=== PATIENT | female | born 1955 | race Caucasian/White ===

== ENCOUNTER 2020-09-07 14:13 | Outpatient (REF) | payer MEDICARE, SELFPAY | END 2020-09-07 14:14 | disposition home or self-care (01) | LOC: HO.LNP 14:13 | PROVIDERS: Visit Provider Nurse Practitioner Family | DX: N39.0 Urinary tract infection, site not specified (principal) | CPT/HCPCS: 87086 ==

== ENCOUNTER 2020-10-05 07:23 | Outpatient (REF) | payer MEDICARE, SELFPAY ==
--- NOTE | 2020-10-05 07:29 | MM_ITS ---
EXAMINATION: BONE DENSITOMETRY CLINICAL INDICATION: Screening for osteoporosis. COMPARISON: Previous BD dated 06/11/2017 and baseline BD dated 05/16/2009. TECHNIQUE: Using a [employer] DXA System (software version: 13.1) manufactured by [employer], dual-energy x-ray absorptiometry was performed of the lumbar spine and left hip. The images are of good technical quality. Summary results are attached. FINDINGS: AP SPINE L1-L4: Current: BMD 0.900 g/cm2, Z-score -0.4, T-score -2.3, osteopenia, 3.4% increase from previous, 0.4% decrease from baseline (<5% change is not significant). Prior: BMD 0.870 g/cm2. Baseline: BMD 0.904 g/cm2. LEFT FEMUR, NECK: Current: BMD 0.685 g/cm2, Z-score -0.8, T-score -2.5, osteoporosis. Prior: BMD 0.722 g/cm2. Baseline: BMD 0.796 g/cm2. LEFT FEMUR, TOTAL: Current: BMD 0.721 g/cm2, Z-score -0.8, T-score -2.3, osteopenia, 2.0% increase from previous, 4.4% decrease from baseline (<5% change is not significant). Prior: BMD 0.707 g/cm2. Baseline: BMD 0.754 g/cm2. IDENTIFIED RISK FACTORS: Menopause. HISTORY OF FRACTURE: None listed. MEDICATIONS: Calcium supplements or multivitamin, vitamin D. Fosamax. MM/XR DEXA axial skeleton IMPRESSION: 1. DIAGNOSIS: Osteoporosis based on the lowest T-score value of -2.5 in the femoral neck applying World Health Organization criteria. 2. 10-YEAR FRACTURE RISK PREDICTION, FRAX: Major osteoporotic fracture (clinical spine, forearm, hip or shoulder) 13.0%. Hip fracture 3.1%. 3. Treatment Recommendations: NOF guidelines recommend consideration for treatment in postmenopausal women and men age 50 and older presenting with the following: -A hip or vertebral (clinical or morphometric) fracture. -T-score less than or equal to -2.5 at the femoral neck or spine after appropriate evaluation to exclude secondary causes. -Low bone mass at the hip or spine and a 10-year fracture probability by FRAX of greater than or equal to 3% for hip fracture or greater than or equal to 20% for major osteoporotic fracture based on the [place] adapted WHO algorithm. 4. Other Recommendations: All treatment decisions require clinical judgment and consideration of individual patient factors, including patient preferences, comorbidities, previous drug use, risk factors not captured in the FRAX model (e.g. frailty, falls, vitamin D deficiency, increased bone turnover, interval significant decline in bone density) and possible under or overestimation of fracture risk by FRAX. Additional medical evaluation for secondary cause of low bone mineral density may be appropriate. FUTURE SCAN RECOMMENDATION: People with diagnosed cases of osteoporosis or at high risk for fracture should have regular bone mineral density tests. For patients eligible for Medicare, routine testing is allowed once every 2 years. The testing frequency can be increased to one year for patients who have rapidly progressing disease, those who are receiving or discontinuing medical therapy to restore bone mass, or have additional risk factors.
--- NOTE | 2020-10-05 07:29 | MM_ITS ---
EXAMINATION: MM SCREENING DIGITAL BREAST TOMOSYNTHESIS, BILATERAL CLINICAL INFORMATION: Screening. Asymptomatic. The lifetime risk of breast cancer based on the Tyrer-Cuzick Model is 5.0%. COMPARISON: Mammography: September 30, 2019 and studies dating back to November 30, 2013 TECHNIQUE: Digital breast tomosynthesis is performed in both the craniocaudal and mediolateral oblique views along with computer-aided detection (CAD). Synthesized 2D images are generated from the tomosynthesis. FINDINGS: There are scattered areas of fibroglandular density (ACR BI-RADS breast composition Category b). There are no significant masses, abnormal calcifications, or other abnormalities. MM/MM tomosynthesis screening BI IMPRESSION: There are no significant changes from prior study. ASSESSMENT: BI-RADS 1: Negative RECOMMENDATION: Routine annual mammography screening. This patient's information was entered into a reminder system with a target due date for their next mammogram.
== END 2020-10-05 07:24 | disposition home or self-care (01) ==
LOC: HO.MAMMO 07:23
PROVIDERS: PCP Internal Medicine; Visit Provider Internal Medicine
DX: M81.0 Age-related osteoporosis without current pathological fracture (principal); Z78.0 Asymptomatic menopausal state; Z79.899 Other long term (current) drug therapy; Z12.31 Encounter for screening mammogram for malignant neoplasm of breast
CPT/HCPCS: 77063; 77067; 77080

== ENCOUNTER 2021-03-10 07:10 | Outpatient (REF) | payer MEDICARE, OTHER, SELFPAY ==
[2021-03-10 07:51] LABS: MANUAL DIFF FLAG NO
[2021-03-10 07:54] LABS: Basophils Percent Auto 0.5 % (0-2); Eosinophils Absolute Auto 0.1 X10*3/uL (0.0-0.4); Eosinophils Percent Auto 2.4 % (0-4); Hematocrit 41.6 % (37-47); Hemoglobin 13.4 g/dl (12.0-16.0); Imm Gran Abs Auto 0.01 X10*3/uL (0.00-0.03); Imm Gran Pct Auto 0.2 % (0.0-0.4); Lymphocytes Absolute Auto 1.5 X10*3/uL (1.2-4.9); Lymphocytes Percent Auto 27.8 % (20-40); Mean Corpuscular HGB Conc 32.2 g/dl (31.0-35.0); Mean Corpuscular Hemoglobin 30.2 pg (27.0-33.0); Mean Corpuscular Volume 93.7 fL (80-98); Mean Platelet Volume 11.7 fL (9.4-12.3); Monocytes Absolute Auto 0.4 X10*3/uL (0.1-1.2); Monocytes Percent Auto 7.5 % (2-11); Neutrophils Absolute Auto 3.4 X10*3/uL (2.0-8.3); Neutrophils Percent Auto 61.6 % (45-73); Platelet Count 202 X10*3/uL (160-400); Red Blood Count 4.44 X10*6/uL (4.20-5.50); Red Cell Distribution Width 12.7 % (11.0-16.0); White Blood Count 5.5 X10*3/uL (4.8-10.8)
[2021-03-10 08:09] LABS: Glucose Urine UA NEG (NEG); Leukocyte Esterase Urine NEG (NEG); Nitrite Urine NEG (NEG); Urine Blood TRACE (NEG); Urine Ketones NEG (NEG); Urine Protein NEG (NEG-TRACE)
[2021-03-10 08:10] LABS: Color Urine YELLOW
[2021-03-10 08:11] LABS: Appearance Urine CLEAR
[2021-03-10 08:14] LABS: Alanine Aminotransferase 14 U/L (0-31); Albumin Level 4.3 g/dL (3.5-5.0); Alkaline Phosphatase 63 U/L (39-117); Anion Gap 11 (12-20); Aspartate Amino Transferase 16 U/L (5-31); Bilirubin Total 0.7 mg/dL (0.0-1.0); Blood Urea Nitrogen 14 mg/dL (9-16); Carbon Dioxide 29 mmol/L (22-29); Chloride 107 mmol/L (96-108); Cholesterol 167 mg/dL; Estimated Glomerular Filt Rate > 60; Glucose Fasting 92 mg/dL (60-99); HDL Cholesterol 65 mg/dL; LDL Cholesterol Calculated 80 mg/dl; Potassium 4.2 mmol/L (3.3-5.1); Sodium 143 mmol/L (135-145); Total Protein 7.3 g/dL (6.5-8.0); Triglycerides 114 mg/dL
[2021-03-10 08:25] LABS: Mucus Urine TRACE /LPF; Squamous Epithelial Cell Urine TRACE /LPF; WBC Urine 0 /HPF (0-4)
[2021-03-10 08:37] LABS: TSH reflex Free T4 1.71 uIU/mL (0.32-4.0); Vitamin D 25-OH Total 27.6 ng/mL (>30)
== END 2021-03-10 07:11 | disposition home or self-care (01) ==
LOC: HO.LAB 07:10
PROVIDERS: PCP Internal Medicine; Visit Provider Internal Medicine
DX: I10 Essential (primary) hypertension (principal); E55.9 Vitamin D deficiency, unspecified; M81.0 Age-related osteoporosis without current pathological fracture
CPT/HCPCS: 36415; 80053; 80061; 81001; 81003; 82306; 84443; 85025

== ENCOUNTER 2022-02-12 07:48 | Outpatient (REF) | payer MEDICARE, OTHER, SELFPAY ==
--- NOTE | ~2022-02-12 | MM_ITS ---
EXAMINATION: MM SCREENING DIGITAL BREAST TOMOSYNTHESIS, BILATERAL CLINICAL INFORMATION: Screening. Asymptomatic. The lifetime risk of breast cancer based on the Tyrer-Cuzick Model is 9%. COMPARISON: Mammography: 10/05/2020, 09/30/2019, 08/07/2018 TECHNIQUE: Digital breast tomosynthesis is performed in both the craniocaudal and mediolateral oblique views along with computer-aided detection (CAD). Synthesized 2D images are generated from the tomosynthesis. FINDINGS: There are scattered areas of fibroglandular density (ACR BI-RADS breast composition Category b). There are no significant masses, abnormal calcifications, or other abnormalities. Parenchymal pattern is similar to prior studies. There is no developing density or architectural abnormality. Intramammary nodes bilateral upper outer quadrants are again noted as incidental finding. There is small dermal lesion overlying upper outer left breast. The axilla and skin contours are unremarkable. No significant changes. MM/MM tomosynthesis screening BI IMPRESSION: No mammographic evidence of malignancy. ASSESSMENT: BI-RADS 2: Benign RECOMMENDATION: Routine annual mammography screening. This patient's information was entered into a reminder system with a target due date for their next mammogram.
== END 2022-02-12 07:49 | disposition home or self-care (01) ==
LOC: HO.MAMMO 07:48
PROVIDERS: Visit Provider Internal Medicine
DX: Z12.31 Encounter for screening mammogram for malignant neoplasm of breast (principal)
CPT/HCPCS: 77063; 77067

== ENCOUNTER 2022-06-11 07:30 | Outpatient (REF) | payer MEDICARE, OTHER, SELFPAY ==
[2022-06-11 08:09] LABS: MANUAL DIFF FLAG NO
[2022-06-11 08:30] LABS: Basophils Percent Auto 0.4 % (0-2); Eosinophils Absolute Auto 0.1 X10*3/uL (0.0-0.4); Eosinophils Percent Auto 1.8 % (0-4); Hemoglobin 13.2 g/dl (12.0-16.0); Lymphocytes Absolute Auto 1.1 X10*3/uL (1.2-4.9); Lymphocytes Percent Auto 24.2 % (20-40); Mean Corpuscular HGB Conc 32.2 g/dl (31.0-35.0); Mean Corpuscular Hemoglobin 29.3 pg (27.0-33.0); Mean Corpuscular Volume 91.1 fL (80.0-98.0); Mean Platelet Volume 11.9 fL (9.4-12.3); Monocytes Absolute Auto 0.4 X10*3/uL (0.1-1.2); Monocytes Percent Auto 7.8 % (2-11); Neutrophils Percent Auto 65.8 % (45-73); Platelet Count 163 X10*3/uL (160-400); Red Cell Distribution Width 13.1 % (11.0-16.0); White Blood Count 4.5 X10*3/uL (4.8-10.8)
[2022-06-11 08:56] LABS: Alanine Aminotransferase 12 U/L (0-31); Albumin Level 4.2 g/dL (3.5-5.0); Alkaline Phosphatase 59 U/L (39-117); Anion Gap 10 (12-20); Aspartate Amino Transferase 16 U/L (5-31); Bilirubin Total 0.5 mg/dL (0.0-1.0); Blood Urea Nitrogen 16 mg/dL (9-16); Calcium 9.2 mg/dL (8.4-10.2); Carbon Dioxide 27 mmol/L (22-29); Chloride 107 mmol/L (96-108); Cholesterol 152 mg/dL; Estimated Glomerular Filt Rate > 60; Glucose Fasting 84 mg/dL (60-99); HDL Cholesterol 67 mg/dL; LDL Cholesterol Calculated 66 mg/dl; Potassium 4.1 mmol/L (3.3-5.1); Sodium 140 mmol/L (135-145); Total Protein 6.9 g/dL (6.5-8.0); Triglycerides 96 mg/dL
[2022-06-11 09:17] LABS: TSH reflex Free T4 1.85 uIU/mL (0.32-4.0)
[2022-06-11 09:29] LABS: Appearance Urine CLEAR; Color Urine STRAW; Glucose Urine UA NEG (NEG); Leukocyte Esterase Urine NEG (NEG); Nitrite Urine NEG (NEG); UACC Culture Trigger NO; Urine Blood TRACE (NEG); Urine Ketones NEG (NEG); Urine Protein NEG (NEG-TRACE)
[2022-06-11 09:36] LABS: Squamous Epithelial Cell Urine TRACE /LPF
[2022-06-11 09:37] LABS: WBC Urine 0-2 /HPF (0-4)
== END 2022-06-11 07:31 | disposition home or self-care (01) ==
LOC: HO.LAB 07:30
PROVIDERS: PCP Internal Medicine; Visit Provider Internal Medicine
DX: Z00.00 Encounter for general adult medical examination without abnormal findings (principal); I10 Essential (primary) hypertension; E55.9 Vitamin D deficiency, unspecified
CPT/HCPCS: 36415; 80053; 80061; 81001; 82306; 84443; 85025

== ENCOUNTER 2022-10-09 12:38 | Outpatient (REF) | payer MEDICARE, OTHER, SELFPAY ==
--- NOTE | ~2022-10-09 | MM_ITS ---
EXAMINATION: BONE DENSITOMETRY CLINICAL INDICATION: Osteoporosis. COMPARISON: Previous BD dated 10/05/2020 and baseline BD dated 05/16/2009. TECHNIQUE: Using a [employer] DXA System (software version: 13.1) manufactured by [employer], dual-energy x-ray absorptiometry was performed of the lumbar spine and left hip. The images are of good technical quality. Summary results are attached. FINDINGS: AP SPINE L1-L4: Current: BMD 0.877 g/cm2, Z-score -0.5, T-score -2.5, osteoporosis, 2.6% decrease from previous, 3.0% increase from baseline (<5% change is not significant). Prior: BMD 0.900 g/cm2. Baseline: BMD 0.904 g/cm2. LEFT FEMUR, NECK: Current: BMD 0.621 g/cm2, Z-score -1.1, T-score -3.0, osteoporosis. Prior: BMD 0.685 g/cm2. Baseline: BMD 0.796 g/cm2. LEFT FEMUR, TOTAL: Current: BMD 0.692 g/cm2, Z-score -0.8, T-score -2.5, osteoporosis, 4.0% decrease from previous, 8.2% decrease from baseline (<5% change is not significant). Prior: BMD 0.721 g/cm2. Baseline: BMD 0.754 g/cm2. IDENTIFIED RISK FACTORS: Menopause. HISTORY OF FRACTURE: None listed. MEDICATIONS: Vitamin D, calcium, bisphosphonate. MM/XR DEXA axial skeleton IMPRESSION: 1. DIAGNOSIS: Osteoporosis based on the lowest T-score value of -3.0 in the femoral neck applying World Health Organization criteria. 2. 10-YEAR FRACTURE RISK PREDICTION, FRAX: According to the guidelines, FRAX calculation should only be performed on patients in the osteopenia bone density category. Therefore, FRAX was not performed on this patient. 3. Treatment Recommendations: NOF guidelines recommend consideration for treatment in postmenopausal women and men age 50 and older presenting with the following: -A hip or vertebral (clinical or morphometric) fracture. -T-score less than or equal to -2.5 at the femoral neck or spine after appropriate evaluation to exclude secondary causes. -Low bone mass at the hip or spine and a 10-year fracture probability by FRAX of greater than or equal to 3% for hip fracture or greater than or equal to 20% for major osteoporotic fracture based on the [place] adapted WHO algorithm. 4. Other Recommendations: All treatment decisions require clinical judgment and consideration of individual patient factors, including patient preferences, comorbidities, previous drug use, risk factors not captured in the FRAX model (e.g. frailty, falls, vitamin D deficiency, increased bone turnover, interval significant decline in bone density) and possible under or overestimation of fracture risk by FRAX. Additional medical evaluation for secondary cause of low bone mineral density may be appropriate. FUTURE SCAN RECOMMENDATION: People with diagnosed cases of osteoporosis or at high risk for fracture should have regular bone mineral density tests. For patients eligible for Medicare, routine testing is allowed once every 2 years. The testing frequency can be increased to one year for patients who have rapidly progressing disease, those who are receiving or discontinuing medical therapy to restore bone mass, or have additional risk factors.
== END 2022-10-09 12:39 | disposition home or self-care (01) ==
LOC: HO.MAMMO 12:38
PROVIDERS: PCP Internal Medicine; Visit Provider Internal Medicine
DX: Z13.820 Encounter for screening for osteoporosis (principal); M81.0 Age-related osteoporosis without current pathological fracture; Z78.0 Asymptomatic menopausal state
CPT/HCPCS: 77080

== ENCOUNTER 2023-03-18 10:28 | Outpatient (REF) | payer MEDICARE, OTHER, SELFPAY ==
--- NOTE | ~2023-03-18 | MM_ITS ---
EXAMINATION: MM SCREENING DIGITAL BREAST TOMOSYNTHESIS, BILATERAL CLINICAL INFORMATION: Screening. Asymptomatic. The lifetime risk of breast cancer based on the Tyrer-Cuzick Model is 10.3%. COMPARISON: Mammography: February 12, 2022 and studies dating back to June 25, 2016 TECHNIQUE: Digital breast tomosynthesis is performed in both the craniocaudal and mediolateral oblique views along with computer-aided detection (CAD). Synthesized 2D images are generated from the tomosynthesis. FINDINGS: There are scattered areas of fibroglandular density (ACR BI-RADS breast composition Category b). There are no significant masses, abnormal calcifications, or other abnormalities. MM/MM tomosynthesis screening BI IMPRESSION: No significant changes from prior exam. ASSESSMENT: BI-RADS 1: Negative RECOMMENDATION: Routine annual mammography screening. This patient's information was entered into a reminder system with a target due date for their next mammogram.
== END 2023-03-18 10:29 | disposition home or self-care (01) ==
LOC: HO.MAMMO 10:28
PROVIDERS: Visit Provider Internal Medicine
DX: Z12.31 Encounter for screening mammogram for malignant neoplasm of breast (principal)
CPT/HCPCS: 77063; 77067

== ENCOUNTER 2023-04-01 10:02 | Outpatient (REF) | payer MEDICARE, OTHER, SELFPAY ==
[2023-04-01 11:39] LABS: Erythrocyte Sedimentation Rate 5 MM/HR (0-20)
[2023-04-01 12:42] LABS: Alanine Aminotransferase 12 U/L (0-31); Albumin Level 4.3 g/dL (3.5-5.0); Alkaline Phosphatase 73 U/L (39-117); Anion Gap 12 (12-20); Aspartate Amino Transferase 19 U/L (5-31); Bilirubin Total 0.8 mg/dL (0.0-1.0); Blood Urea Nitrogen 14 mg/dL (9-16); Calcium 9.6 mg/dL (8.4-10.2); Carbon Dioxide 27 mmol/L (22-29); Chloride 104 mmol/L (96-108); Estimated Glomerular Filt Rate > 60; Glucose Random 79 mg/dL (60-115); Potassium 4.3 mmol/L (3.3-5.1); Rheumatoid Factor < 13.0 IU/mL (<15.0); Sodium 139 mmol/L (135-145); Total Protein 6.9 g/dL (6.5-8.0)
[2023-04-01 13:13] LABS: Folate 10.9 ng/mL (> or = 4.0); Vitamin B12 366 pg/mL (200-900); Vitamin D 25-OH Total 34.8 ng/mL (>30)
[2023-04-04 22:29] LABS: Scleroderma 70 Antibody <1.0 NEG AI (<1.0 NEG)
[2023-04-04 23:13] LABS: Vitamin C 1.2 mg/dL (0.3-2.7)
[2023-04-05 16:44] LABS: Vitamin B6 11.7 ng/mL (2.1-21.7)
[2023-04-06 14:52] LABS: Vitamin B1 13 nmol/L (8-30)
[2023-04-09 15:53] LABS: Anti Nuclear Antibody Screen POSITIVE (NEGATIVE); Anti Nuclear Antibody Titer 1:40 titer
== END 2023-04-01 10:03 | disposition home or self-care (01) ==
LOC: HO.LAB 10:02
PROVIDERS: PCP Internal Medicine; Visit Provider Internal Medicine
DX: K13.0 Diseases of lips (principal); M35.00 Sjogren syndrome, unspecified; M79.7 Fibromyalgia; E55.9 Vitamin D deficiency, unspecified
CPT/HCPCS: 36415; 80053; 82180; 82306; 82607; 82746; 84207; 84425; 84443; 85652; 86038; 86039; 86140; 86235; 86431

== ENCOUNTER 2023-09-04 09:07 | Outpatient (AMB) | payer MEDICARE, OTHER, SELFPAY ==
[2023-09-04 09:12] VITALS: BP 138/86; PULSE 93; O2SAT 97; BMI 22.2
--- NOTE | 2023-09-04 09:12 | A.OFFPC_ITS ---
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 Accompanied by: Self / Same As Patient Allergies No Known Allergies [No Known Allergies*] Allergy (Verified 09/04/23 09:35) Medication List - Last Reconciled 09/04/23 by Tyrell Carrillo MD lisinopril 10 mg PO DAILY 90 days Tobacco use date assessed: 09/04/23 Fall risk assessment: No Falls in past year Last assessed Fall Risk: 09/04/23 Dental Screening Dental Screen Date: 09/04/23 Did you have a dental visit in the last 12 months?: Yes Did you have a dental problem in the last 6 months where you did not have access to dental care?: No Was dental information given to patient?: Patient has dentist HPI dry mouth, HTN, osteoporosis HPI Details Patient comes in today for her follow up visit States that she feels okay She denies any headaches or dizziness Denies any chest pains, no SOB No nausea/vomiting, no abdominal pain No change in bowel habits noted Continues to experience symptoms of recurrent dry lips often, especially at night States that her dry mouth symptoms seem to have resolved Also relates (+) on and off diffuse tingling and prickly sensation all over - notes that these seem to occur more often when she feels anxious and is wondering if most of her symptoms are just due to anxiety She does admit to feeling anxious more often over the past few years and tends to lie down in bed and thinking a lot lately, which sometimes keep her up for a while She has been referred to rheumatology for a positive EMA screen when she was sent for some labs back in April 2023 and is scheduled to be seen at the end of October 2023 Needs her Lisinopril Rx refilled today Would also like to get her flu shot today PFSH Medical History Strain of right rotator cuff capsule Vitamin D deficiency Osteoporosis Benign essential hypertension Dysuria Surgical History History of biopsy History of hysteroscopy History of colonoscopy Family History Father Smoker PVD (peripheral vascular disease) Mother Breast cancer Social History Housing: House Alcohol intake: never Patient Tobacco Use Status: Never used Tobacco e-Cigarette/Vaping Use: Never Used service: No Cognitive needs: No Hearing needs: No Vision needs: No Questionnaire PHQ-9 Over the last 2 weeks, how often have you been bothered by any of the following problems? 1. Little interest or pleasure in doing things: not at all 2. Feeling down, depressed, or hopeless: not at all 3. Trouble falling or staying asleep, or sleeping too much: not at all 4. Feeling tired or having little energy: not at all 5. Poor appetite or overeating: not at all 6. Feeling bad about yourself - or that you are a failure or have let yourself or your family down: not at all 7. Trouble concentrating on things, such as reading the newspaper or watching television: not at all 8. Moving or speaking so slowly that other people could have noticed. Or the opposite - being so fidgety or restless that you have been moving around a lot more than usual: not at all 9. Thoughts that you would be better off or of hurting yourself in some way: not at all Total score: 0 Depression Screening Interpretation: Negative Depression Screening Done: Yes 41641 - PHQ-9 Billing: Yes Source: Developed by Drs. Vijay Delgado, Sandra Franks, Gibson Hairston and colleagues, with an educational kirstie from [email or web address] Thrive Questionnaire Date Thrive assessed: 09/04/23 I am a: Patient What is your living situation today?: I have a steady place to live Within the past 12 months, did the food you bought not last and you didn't have the money to get more?: Never true Within the past 12 months, did you worry whether your food would run out before you got money to buy more?: Never true Do you have trouble paying for medicines?: No Do you have trouble getting transportation to medical appointments?: No Do you have trouble paying your heating and electricity bill?: No Do you have trouble taking care of your child, family member or friend?: No Do you have trouble with day-to-day activities such as bathing, preparing meals, shopping, managing finances, etc.?: No Are you currently unemployed and looking for a job?: No Are you interested in more education?: No Please select the resources that you would like help with: None Currently or been in a relationship where the following occur: no concerns reported AUDIT C Alcohol Use Questionnaire (AUDIT-C) 1. How often do you have a drink containing alcohol?: Never 3. How often do you have six or more drinks on one occasion?: Never Total Score: 0 Score Reviewed/Action Taken: Yes VIKTORIA-7 AMB Questionnaire VIKTORIA-7 Date VIKTORIA - 7 assessed: 09/04/23 Feeling nervous, anxious, or on edge: 0 = Not at all Not being able to stop or control worryin = Not at all Worrying too much about different things: 0 = Not at all Trouble relaxin = Not at all Being so restless that it is hard to sit still: 0 = Not at all Becoming easily annoyed or irritable: 0 = Not at all Feeling afraid as if something awful might happen: 0 = Not at all Total VIKTORIA-7 score (0-4 normal; 5-9 mild; 10-14 moderate; 15-21 severe): 0 Source: Developed by Drs. Vijay Delgado, Sandra Franks, Gibson Hairston and colleagues, with an educational kirstie from [email or web address]. VIKTORIA-7 Assessment Billing VIKTORIA-7 Assessment Tool: VIKTORIA-7 Assessment 66133 Review of Systems Const Denies chills, Denies fatigue, Denies fever(s) and Denies headache(s) ENT Denies dysphagia, Denies dizziness, Denies dry mouth (but (+) dry lips often), Denies otalgia, Denies headache(s), Denies neck pain, Denies odynophagia and Denies sore throat Card Denies chest pain, Denies palpitations and Denies dyspnea Resp Denies cough and Denies dyspnea GI Denies abdominal pain, Denies constipation, Denies dysphagia, Denies heartburn, Denies diarrhea, Denies nausea, Denies odynophagia and Denies vomiting Denies difficulty voiding, Denies nocturia, Denies dysuria and Denies urinary urgency Musc Denies neck pain Skin/Breast Details: (+) on and off diffuse prickly and tingling sensation, often when she feels anxious Reports dry skin (mostly over the sole of the left foot, especially on the lateral aspect) and Denies rash Neuro Denies dizziness and Denies headache(s) Psych Reports anxiety Endo Denies fatigue and Denies palpitations Physical exam (Primary Care) Vital Signs: Last Vital Signs Pulse 93 09/04/23 09:12 BP 138/86 09/04/23 09:12 Pulse Ox 97 09/04/23 09:12 Oxygen Delivery Method Room Air 09/04/23 09:12 BMI result Body Mass Index 22.2 Tobacco/Smoking Status: Tobacco use Status Tobacco use date assessed 09/04/23 09/04/23 09:14 Patient Tobacco Use Status Never used Tobacco 09/04/23 09:14 e-Cigarette/Vaping Use Never Used 09/04/23 09:14 PHQ-9: PHQ-9 Score PHQ-9: Total score 0 09/04/23 09:38 Depression Screening Interpretation: Negative Thrive Assessment: Date of Thrive Assessment Date Thrive assessed 09/04/23 09/04/23 09:14 Currently or been in a relationship where the following occur: no concerns reported Const General: no acute distress and alert Neck Neck: Yes no lymphadenopathy and Yes supple Resp Auscultation: clear to auscultation bilaterally, no rales and no wheezes Cardio Rate: regular rate Rhythm: regular rhythm Heart sounds: no murmurs GI Palpation (GI): Soft to palpation and nontender Auscultation: normal bowel sounds Skin Rashes: no rashes Extrem General: Yes no clubbing, cyanosis or edema Office Procedures Flu Questionnaire Does the patient have a severe egg allergy?: No Does the patient have severe life threatening allergies?: No Does the patient have a fever or illness today?: No Has the patient ever had Guillain-[place] Syndrome?: No Has the patient ever had any past reaction to a flu shot?: No Immunizations flu vacc [id number] 6mos up(PF) 60 mcg(15 mcgx4)/0.5 mL IM syringe Performing Provider: Tyrell Carrillo MD [facility] Administered by: Felipe Velásquez on 09/04/23 09:52 Dose Route Admin Location Dispensed Lot Number Expiration Date [employer] 0.5 mL IM Left Deltoid 0.5 mL [id number] 05/31/24 98265-559-10 [employer] VIS Given Date VIS Provided VIS Publication Date 09/04/23 Single Vaccine 21 Eligibility Eligibility Date Funding Source Not [facility] Eligible 09/04/23 Private Results Reviewed Results Reviewed: Laboratory Tests 06/11/22 06/11/22 04/01/23 08:08 08:08 10:18 Sodium 139 Potassium 4.3 Creatinine 0.63 Estimated GFR > 60 Random Glucose 79 Calcium 9.6 AST 19 ALT Triglycerides 96 Cholesterol 152 LDL Cholesterol, Calc 66 HDL Cholesterol 67 Vitamin B1 Vitamin B6 Vitamin B12 Vitamin C 25-OH Vitamin D Total Folate TSH 04/01/23 10:18 Sodium Potassium Creatinine Estimated GFR Random Glucose Calcium AST ALT 12 Triglycerides Cholesterol LDL Cholesterol, Calc HDL Cholesterol Vitamin B1 13 Vitamin B6 11.7 Vitamin B12 366 Vitamin C 1.2 25-OH Vitamin D Total 34.8 Folate 10.9 TSH 1.70 Assessment and Plan Assessment & Plan (1) Benign essential hypertension: Code(s): I10 - Essential (primary) hypertension Plan: Reinforced low sodium diet - goal is systolic BP of at least 130 mm or less Continue Lisinopril 10 mg QD - Rx refilled Patient is reminded to continue monitoring her BP regularly (2) Osteoporosis: Code(s): M81.0 - Age-related osteoporosis without current pathological fracture Qualifiers: Osteoporosis type: age-related Presence of current pathological fracture: without current pathological fracture Qualified Code(s): M81.0 - Age- related osteoporosis without current pathological fracture Plan: She is reminded to continue to stay active and exercise regularly and to continue taking her daily oral Vitamin D and Calcium supplements Repeat BMD last done in October 2022 is again mostly unchanged from previous (BMD from 10/2020) Patient has completed Tx with Alendronate 70 mg once a week x 5 years (Rx stopped after June 2022) Have again discussed with patient other treatment options for osteoporosis, including Forteo, Prolia and Reclast or the other option is to have her see endocrinology for further recommendations but these can wait until her next BMD is done in 2 to 3 years (3) Vitamin D deficiency: Code(s): E55.9 - Vitamin D deficiency, unspecified Plan: Continue OTC Vitamin D3 1000 units QD and Calcium + Vitamin D tablets QD (4) Dry lips: Code(s): K13.0 - Diseases of lips Plan: Unclear etiology, possibly due to change in weather/humidity and/or dehydration Have reassured patient that her work ups done a few months ago came back normal and instructed her to use lip balms liberally PRN, especially during the dry winter months, and to make sure she drinks plenty of fluids regularly and stay hydrated (5) Dry skin dermatitis: Code(s): L85.3 - Xerosis cutis Plan: Mostly on the left foot (sole) Will start her on Lac-Hydrin lotion 12% to apply to dry area of skin BID PRN (6) Positive EMA (antinuclear antibody): Code(s): R76.8 - Other specified abnormal immunological findings in serum Plan: Patient tested positive for EMA but tests for RA and scleroderma were all negative She currently does not appear to have any signs or symptoms of inflammatory joint disease and has no significant skin rash or lesions and other than her oc casional muscle aches and pains , does not appear to have any symptoms of myopathy or myositis Advised that her positive EMA may be irrelevant with no clinical significance as she is practically asymptomatic but due to her continuing concerns, was referred to rheumatology for further evaluation - she is scheduled to be see by rheumatology at the end of October 2023 (7) Anxiety: Code(s): F41.9 - Anxiety disorder, unspecified Plan: Advised that her recent symptoms of on and off diffuse prickly and tingling/itchy sensations are likely related to anxiety Will start her for now on Hydroxyzine 25 mg TID PRN - advised that she can just take this as needed whenever she feels that her anxiety or related symptoms are starting to get worse Plan Flu vaccine given today Follow up in 6 months Orders: Orders Influenza [id number] Immunization Today Z23 - Encounter for immunization Medications: New hydroxyzine HCl 25 mg PO TID 30 days PRN 90 tabs 2RF anxiety ammonium lactate 12% 1 appl topical BID PRN 400 grams 0RF dry skin Refilled lisinopril 10 mg PO DAILY 90 days 90 tabs 3RF I10 - Essential (primary) hypertension Coding Level of Care Code Est Pt Level 4 (74423) Diagnoses Benign essential hypertension I10 Age-related osteoporosis without current pathological fracture M81.0 Osteoporosis type: age-related Presence of current pathological fracture: without current pathological fracture Vitamin D deficiency E55.9 Dry lips K13.0 Dry skin dermatitis L85.3 Positive EMA (antinuclear antibody) R76.8 Anxiety F41.9 Additional Codes VIKTORIA-7 Assessment Billing - VIKTORIA-7 Assessment Tool: VIKTORIA-7 Assessment [id number] ([id number])
== END 2023-09-04 10:00 | disposition home or self-care (01) ==
PROVIDERS: Visit Provider Internal Medicine
DX: Z23 Encounter for immunization (principal); I10 Essential (primary) hypertension; M81.0 Age-related osteoporosis without current pathological fracture; E55.9 Vitamin D deficiency, unspecified; K13.0 Diseases of lips
CPT/HCPCS: 90471; 90686; 99214

== ENCOUNTER 2023-10-31 14:53 | Outpatient (AMB) | payer MEDICARE, OTHER, SELFPAY ==
--- NOTE | 2023-10-31 15:18 | A.OFFVIS_ITS ---
Intake Vital Signs 10/31/23 15:19 Height 5 ft 2 in Weight 127 lb 3.307 oz BMI 23.3 BP 152/80 H Blood Pressure Location Rt brachial Position Sitting Pulse 93 Pulse Source Pulse Oximeter Temp 97.3 F Temp Source Skin Pulse Oximetry (%) 98 Oxygen Delivery Method Room Air Intake Visit Reasons: abnormal lab/dry mouth Intake Note: New pt presents today for +EMA consult. C/o dry mouth, started approx a year ago. 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 In September of last year patient had an episode of upper and lower lip pain, swelling, erythema, dryness. She went to her PCP and was prescribed antibiotics and steroids with some improvement. She needs then she has had a few episodes. She would also have a stinging sensation of her lips. Also around the same time last year she started having feelings of tingling in her entire body including her back, arms, thighs. She believes it is related to stress. She denies any dry mouth. She denies any swollen joints. Denies skin thickening. States that her hands get cold in cold weather but they do not change color. She denies any significant weight change. She is unaware of any family history of an autoimmune rheumatic disease. Daughter mentions that patient's granddaughter might have chilblains. There is no history of DVT/PE. [facility] Medical History Strain of right rotator cuff capsule Vitamin D deficiency Osteoporosis Benign essential hypertension Dysuria Surgical History History of biopsy History of hysteroscopy History of colonoscopy Family History Father Smoker PVD (peripheral vascular disease) Mother Breast cancer Social History Household Members: Significant Other Housing: House Alcohol intake: never Patient Tobacco Use Status: Never used Tobacco e-Cigarette/Vaping Use: Never Used service: No Cognitive needs: No Hearing needs: No Vision needs: No Review of Systems Const Denies fatigue, Denies fever(s), Denies weight gain and Denies weight loss Musc Denies arthralgias, Denies joint swelling, Denies stiffness and Reports tingling Skin/Breast Reports dry skin, Reports skin pain, Reports skin swelling and Reports sores Neuro Reports tingling and Reports paresthesias Psych Reports anxiety Endo Denies fatigue Physical Exam Vital Signs: Last Vital Signs Temp 97.3 F 10/31/23 15:19 Pulse 93 10/31/23 15:19 BP 152/80 H 10/31/23 15:19 Pulse Ox 98 10/31/23 15:19 Oxygen Delivery Method Room Air 10/31/23 15:19 BMI result Body Mass Index 23.3 Const General: cooperative, healthy appearing and comfortable Nutritional Appearance: average body habitus Orientation/consciousness: patient oriented x3 Limitations: no limitations HEENT Head: Yes normocephalic and Yes atraumatic Mouth: moist mucous membranes Resp Effort & Inspection: normal respiratory effort and able to speak in complete sentences Auscultation: clear to auscultation bilaterally Cardio Rate: regular rate Rhythm: regular rhythm GI Inspection: No distended Palpation (GI): Soft to palpation and nontender Skin General skin exam: no rashes or lesions noted Neuro General: patient oriented x3 Extrem Other: Mild osteoarthritic changes of both hands with no active synovitis Normal nailfold capillaroscopy No scleroderma Assessment & Plan Assessment & Plan (1) Positive EMA (antinuclear antibody): Code(s): R76.8 - Other specified abnormal immunological findings in serum Plan: This is a 68-year-old female who is referred for evaluation of a positive EMA 1- 40. This was in the setting of recurrent episodes of upper and lower lip dryness, erythema, redness, tightness and pinching sensation. Upon my evaluation I do not see any evidence of an autoimmune rheumatic disease. EMA 1-40 is considered low titer generally considered negative. No further workup is needed from Rheumatology standpoint. Follow-up as needed Plan I spent 30 minutes reviewing patient's chart, evaluating patient, , counseling patient & her daughter and documenting in the chart Coding Level of Care Code New Pt Level 3 (45765) Diagnoses Positive EMA (antinuclear antibody) R76.8
[2023-10-31 15:19] VITALS: BP 152/80; PULSE 93; TEMP 36.3; O2SAT 98; BMI 23.3
== END 2023-10-31 16:07 | disposition home or self-care (01) ==
PROVIDERS: PCP Internal Medicine; Visit Provider Student in an Organized Health Care Education/Training Program
DX: R76.8 Other specified abnormal immunological findings in serum (principal)
CPT/HCPCS: 99203

== ENCOUNTER → 2023-10-31 14:53 | Outpatient (BNVA) | payer MEDICARE, OTHER, SELFPAY | PROVIDERS: PCP Internal Medicine; Visit Provider Student in an Organized Health Care Education/Training Program | DX: R76.8 Other specified abnormal immunological findings in serum (principal) | CPT/HCPCS: 99202 ==

== ENCOUNTER 2024-03-05 09:08 | Outpatient (AMB) | payer MEDICARE, OTHER, SELFPAY ==
[2024-03-05 09:29] VITALS: BP 130/78; PULSE 86; O2SAT 98; BMI 23.3
--- NOTE | 2024-03-05 09:29 | A.OFFPC_ITS ---
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 Accompanied by: Self / Same As Patient Allergies No Known Allergies (No Known Allergies*) Allergy (Verified 04/05/26 09:54) Medication List - Last Reconciled 03/05/24 by Tyrell Carrillo MD ammonium lactate 12% 1 appl topical BID PRN lisinopril 10 mg PO DAILY 90 days Tobacco use date assessed: 09/04/23 Dental Screening Dental Screen Date: 09/04/23 [facility] Medical History Dysuria Surgical History History of biopsy History of hysteroscopy History of colonoscopy Family History Father Smoker PVD (peripheral vascular disease) Mother Breast cancer Social History Household Members: Significant Other Housing: House Alcohol intake: never Patient Tobacco Use Status: Never used Tobacco e-Cigarette/Vaping Use: Never Used service: No Cognitive needs: No Hearing needs: No Vision needs: No Questionnaire PHQ-9 Over the last 2 weeks, how often have you been bothered by any of the following problems? 1. Little interest or pleasure in doing things: not at all 2. Feeling down, depressed, or hopeless: not at all 3. Trouble falling or staying asleep, or sleeping too much: not at all 4. Feeling tired or having little energy: not at all 5. Poor appetite or overeating: not at all 6. Feeling bad about yourself - or that you are a failure or have let yourself or your family down: not at all 7. Trouble concentrating on things, such as reading the newspaper or watching television: not at all 8. Moving or speaking so slowly that other people could have noticed. Or the opposite - being so fidgety or restless that you have been moving around a lot more than usual: not at all 9. Thoughts that you would be better off or of hurting yourself in some way: not at all Total score: 0 Depression Screening Interpretation: Negative Depression Screening Done: Yes 53098 - PHQ-9 Billing: Yes Source: Developed by Drs. Vijay Delgado, Sandra Franks, Gibson Hairston and colleagues, with an educational kirstie from [employer]. Thrive Questionnaire Date Thrive assessed: 03/05/24 I am a: Patient What is your living situation today?: I have a steady place to live Within the past 12 months, did the food you bought not last and you didn't have the money to get more?: Never true Within the past 12 months, did you worry whether your food would run out before you got money to buy more?: Never true Do you have trouble paying for medicines?: No Do you have trouble getting transportation to medical appointments?: No Do you have trouble paying your heating and electricity bill?: No Do you have trouble taking care of your child, family member or friend?: No Do you have trouble with day-to-day activities such as bathing, preparing meals, shopping, managing finances, etc.?: No Are you currently unemployed and looking for a job?: No Are you interested in more education?: No Please select the resources that you would like help with: None Currently or been in a relationship where the following occur: no concerns reported THRIVE Score: 0 AUDIT C Alcohol Use Questionnaire (AUDIT-C) 1. How often do you have a drink containing alcohol?: Never 3. How often do you have six or more drinks on one occasion?: Never Total Score: 0 Score Reviewed/Action Taken: Yes VIKTORIA-7 AMB Questionnaire VIKTORIA-7 Date VIKTORIA - 7 assessed: 03/05/24 Feeling nervous, anxious, or on edge: 0 = Not at all Not being able to stop or control worryin = Not at all Worrying too much about different things: 0 = Not at all Trouble relaxin = Not at all Being so restless that it is hard to sit still: 0 = Not at all Becoming easily annoyed or irritable: 0 = Not at all Feeling afraid as if something awful might happen: 0 = Not at all Total VIKTORIA-7 score (0-4 normal; 5-9 mild; 10-14 moderate; 15-21 severe): 0 Source: Developed by Drs. Vijay Delgado, Sandra Franks, Gibson Hairston and colleagues, with an educational kirstie from [employer]. VIKTORIA-7 Assessment Billing VIKTORIA-7 Assessment Tool: VIKTORIA-7 Assessment 87348 Physical exam (Primary Care) Vital Signs: Last Vital Signs Pulse 86 03/05/24 09:29 BP 130/78 03/05/24 09:29 Pulse Ox 98 03/05/24 09:29 Oxygen Delivery Method Room Air 03/05/24 09:29 BMI result Body Mass Index 23.3 Tobacco/Smoking Status: Tobacco use Status Tobacco use date assessed 09/04/23 03/05/24 09:30 Patient Tobacco Use Status Never used Tobacco 03/05/24 09:30 e-Cigarette/Vaping Use Never Used 03/05/24 09:30 PHQ-9: PHQ-9 Score PHQ-9: Total score 0 03/05/24 10:12 Depression Screening Interpretation: Negative Thrive Assessment: Date of Thrive Assessment Date Thrive assessed 03/05/24 03/05/24 09:39 Currently or been in a relationship where the following occur: no concerns reported Coding Level of Care Code Admin Sign Off/No Billing Diagnoses Benign essential hypertension I10 Age-related osteoporosis without current pathological fracture M81.0 Osteoporosis type: age-related Presence of current pathological fracture: without current pathological fracture Vitamin D deficiency E55.9 Dry lips K13.0 Dry skin dermatitis L85.3 Positive EMA (antinuclear antibody) R76.8 Anxiety F41.9 Additional Codes VIKTORIA-7 Assessment Billing - VIKTORIA-7 Assessment Tool: VIKTORIA-7 Assessment [id number] ([id number])
== END 2024-03-05 10:25 | disposition home or self-care (01) ==
PROVIDERS: PCP Internal Medicine; Visit Provider Internal Medicine
DX: I10 Essential (primary) hypertension (principal); M81.0 Age-related osteoporosis without current pathological fracture; E55.9 Vitamin D deficiency, unspecified; K13.0 Diseases of lips; L85.3 Xerosis cutis; R76.8 Other specified abnormal immunological findings in serum; F41.9 Anxiety disorder, unspecified
CPT/HCPCS: 96127; 99499

== ENCOUNTER 2024-03-26 07:53 | Outpatient (REF) | payer MEDICARE, OTHER, SELFPAY ==
--- NOTE | ~2024-03-26 | MM_ITS ---
EXAMINATION: MM SCREENING DIGITAL BREAST TOMOSYNTHESIS, BILATERAL CLINICAL INFORMATION: Screening. Asymptomatic. COMPARISON: Mammography: 03/18/2023, 02/12/2022, 10/05/2020, 09/30/2019, 08/07/2018 TECHNIQUE: Digital breast tomosynthesis is performed in both the craniocaudal and mediolateral oblique views along with computer-aided detection (CAD). Synthesized 2D images are generated from the tomosynthesis. FINDINGS: There are scattered areas of fibroglandular density (ACR BI-RADS breast composition Category b). There are no suspicious masses, suspicious grouped calcifications, or regions of architectural distortion. Parenchymal pattern is similar to prior studies. Intramammary nodes bilateral upper outer quadrants are again noted as incidental finding. There is small dermal lesion again present overlying upper outer left breast. The axilla and skin contours are unremarkable. Overall no change. MM/MM tomosynthesis screening BI IMPRESSION: No mammographic evidence of malignancy. No significant interval change. ASSESSMENT: BI-RADS BI-RADS 2 - Benign Findings RECOMMENDATION: Routine annual mammography screening. 1 year F/U This examination should not preclude the clinical evaluation of a suspicious palpable abnormality. This patient's information was entered into a reminder system with a target due date for their next mammogram.
== END 2024-03-26 07:54 | disposition home or self-care (01) ==
LOC: HO.MAMMO 07:53
PROVIDERS: PCP Internal Medicine; Visit Provider Internal Medicine
DX: Z12.31 Encounter for screening mammogram for malignant neoplasm of breast (principal)
CPT/HCPCS: 77063; 77067

== ENCOUNTER → 2024-03-26 08:15 | Outpatient (BNV) | payer MEDICARE, OTHER, SELFPAY | PROVIDERS: PCP Internal Medicine; Visit Provider Radiology Diagnostic Radiology | DX: Z12.31 Encounter for screening mammogram for malignant neoplasm of breast (principal) | CPT/HCPCS: 77063; 77067 ==

== ENCOUNTER 2024-08-04 08:38 | Outpatient (REF) | payer MEDICARE, OTHER, SELFPAY ==
[2024-08-04 08:54] LABS: MANUAL DIFF FLAG NO
[2024-08-04 09:37] LABS: Basophils Percent Auto 0.6 % (0-2); Eosinophils Absolute Auto 0.1 X10*3/uL (0.0-0.4); Eosinophils Percent Auto 1.8 % (0-4); Hematocrit 41.3 % (37.0-47.0); Hemoglobin 13.7 g/dl (12.0-16.0); Imm Gran Abs Auto 0.04 X10*3/uL (0.00-0.03); Imm Gran Pct Auto 0.6 % (0.0-0.4); Lymphocytes Absolute Auto 1.3 X10*3/uL (1.2-4.9); Lymphocytes Percent Auto 18.1 % (20-40); Mean Corpuscular HGB Conc 33.2 g/dl (31.0-35.0); Mean Corpuscular Hemoglobin 30.8 pg (27.0-33.0); Mean Corpuscular Volume 92.8 fL (80.0-98.0); Mean Platelet Volume 12.1 fL (9.4-12.3); Monocytes Absolute Auto 0.5 X10*3/uL (0.1-1.2); Monocytes Percent Auto 6.9 % (2-11); Neutrophils Absolute Auto 5.1 x10*3/uL (2.0-8.3); Platelet Count 191 X10*3/uL (160-400); Red Blood Count 4.45 X10*6/uL (4.20-5.50); Red Cell Distribution Width 12.7 % (11.0-16.0); White Blood Count 7.1 X10*3/uL (4.8-10.8)
[2024-08-04 10:33] LABS: Appearance Urine Clear; Color Urine Yellow; Glucose Urine UA Negative (Negative); Leukocyte Esterase Urine Negative (Negative); Nitrite Urine Negative (Negative); PH 5.5 (5.0-9.0); Specific Gravity - Urine 1.015 (1.005-1.025); Urine Blood Negative (Negative); Urine Ketones Negative (Negative); Urine Protein Negative (Neg-Trace)
[2024-08-04 10:47] LABS: Alanine Aminotransferase 14 U/L (0-31); Albumin Level 4.1 g/dL (3.5-5.0); Alkaline Phosphatase 76 U/L (39-117); Anion Gap 11 (12-20); Aspartate Amino Transferase 17 U/L (5-31); Bilirubin Total 0.5 mg/dL (0.0-1.0); Blood Urea Nitrogen 13 mg/dL (9-16); Calcium 9.5 mg/dL (8.4-10.2); Carbon Dioxide 28 mmol/L (22-29); Chloride 106 mmol/L (96-108); Cholesterol 162 mg/dL (<200); Estimated Glomerular Filt Rate > 60; Glucose Fasting 84 mg/dL (60-99); HDL Cholesterol 63 mg/dL (>40); LDL Cholesterol Calculated 85 mg/dL (<100); Sodium 141 mmol/L (135-145); TSH reflex Free T4 1.81 uIU/mL (0.32-4.0); Total Protein 7.2 g/dL (6.5-8.0); Triglycerides 72 mg/dL (<150); Vitamin D 25-OH Total 35.4 ng/mL (>30)
[2024-08-12 10:18] LABS: N-Telopeptide 54 (see note); NTXCreaRU 71 mg/dL (20-275)
== END 2024-08-04 08:39 | disposition home or self-care (01) ==
LOC: HO.LAB 08:38
PROVIDERS: PCP Internal Medicine; Visit Provider Internal Medicine
DX: E78.00 Pure hypercholesterolemia, unspecified (principal); M81.0 Age-related osteoporosis without current pathological fracture; R30.0 Dysuria; D64.9 Anemia, unspecified; E55.9 Vitamin D deficiency, unspecified
CPT/HCPCS: 36415; 80053; 80061; 81003; 82306; 82523; 84443; 85025

== ENCOUNTER 2024-09-30 08:53 | Outpatient (AMB) | payer MEDICARE, OTHER, SELFPAY ==
[2024-09-30 09:02] VITALS: BP 126/82; PULSE 79; O2SAT 98; BMI 23.1
--- NOTE | 2024-09-30 09:02 | MHC.PC.OV ---
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: No Was dental information given to patient?: Patient has dentist HPI HTN, osteoporosis, anxiety HPI Details Patient comes in today for her follow up visit States that she feels okay She denies any headaches or dizziness Denies any chest pains, no SOB No nausea/vomiting, no abdominal pain No change in bowel habits noted She had her follow up labs done last month - to discuss her results Would also like to get her flu shot today PFSH Medical History Strain of right rotator cuff capsule Vitamin D deficiency Osteoporosis Benign essential hypertension Dysuria Surgical History History of biopsy History of hysteroscopy History of colonoscopy Family History Father Smoker PVD (peripheral vascular disease) Mother Breast cancer Social History Household Members: Significant Other Housing: House Alcohol intake: never Patient Tobacco Use Status: Never used Tobacco e-Cigarette/Vaping Use: Never Used service: No Cognitive needs: No Hearing needs: No Vision needs: No Questionnaire PHQ-9 Over the last 2 weeks, how often have you been bothered by any of the following problems? 1. Little interest or pleasure in doing things: not at all 2. Feeling down, depressed, or hopeless: not at all 3. Trouble falling or staying asleep, or sleeping too much: not at all 4. Feeling tired or having little energy: not at all 5. Poor appetite or overeating: not at all 6. Feeling bad about yourself - or that you are a failure or have let yourself or your family down: not at all 7. Trouble concentrating on things, such as reading the newspaper or watching television: not at all 8. Moving or speaking so slowly that other people could have noticed. Or the opposite - being so fidgety or restless that you have been moving around a lot more than usual: not at all 9. Thoughts that you would be better off or of hurting yourself in some way: not at all Total score: 0 Depression Screening Interpretation: Negative Depression Screening Done: Yes 67886 - PHQ-9 Billing: Yes Source: Developed by Drs. Vijay Delgado, Sandra Franks, Gibson Hairston and colleagues, with an educational kirstie from [employer]. Thrive Questionnaire Date Thrive assessed: 09/30/24 I am a: Patient What is your living situation today?: I have a steady place to live Within the past 12 months, did the food you bought not last and you didn't have the money to get more?: Never true Within the past 12 months, did you worry whether your food would run out before you got money to buy more?: Never true Do you have trouble paying for medicines?: No Do you have trouble getting transportation to medical appointments?: No Do you have trouble paying your heating and electricity bill?: No Do you have trouble taking care of your child, family member or friend?: No Do you have trouble with day-to-day activities such as bathing, preparing meals, shopping, managing finances, etc.?: No Are you currently unemployed and looking for a job?: No Are you interested in more education?: No Please select the resources that you would like help with: None Currently or been in a relationship where the following occur: No concerns reported THRIVE Score: 0 AUDIT C Alcohol Use Questionnaire (AUDIT-C) 1. How often do you have a drink containing alcohol?: Never 3. How often do you have six or more drinks on one occasion?: Never Total Score: 0 Score Reviewed/Action Taken: Yes VIKTORIA-7 AMB Questionnaire VIKTORIA-7 Date VIKTORIA - 7 assessed: 09/30/24 Feeling nervous, anxious, or on edge: 0 = Not at all Not being able to stop or control worryin = Not at all Worrying too much about different things: 0 = Not at all Trouble relaxin = Not at all Being so restless that it is hard to sit still: 0 = Not at all Becoming easily annoyed or irritable: 0 = Not at all Feeling afraid as if something awful might happen: 0 = Not at all Total VIKTORIA-7 score (0-4 normal; 5-9 mild; 10-14 moderate; 15-21 severe): 0 Source: Developed by Drs. Vijay Delgado, Sandra Franks, Gibson Hairston and colleagues, with an educational kirstie from [employer]. VIKTORIA-7 Assessment Billing VIKTORIA-7 Assessment Tool: VIKTORIA-7 Assessment 52744 Review of Systems Const Denies chills, Denies fatigue, Denies fever(s) and Denies headache(s) ENT Denies dysphagia, Denies dizziness, Denies dry mouth (but (+) dry lips often), Denies otalgia, Denies headache(s), Denies neck pain, Denies odynophagia and Denies sore throat Card Denies chest pain, Denies palpitations and Denies dyspnea Resp Denies chest congestion, Denies cough and Denies dyspnea GI Denies abdominal pain, Denies constipation, Denies dysphagia, Denies heartburn, Denies diarrhea, Denies nausea, Denies odynophagia and Denies vomiting Denies difficulty voiding, Denies nocturia, Denies dysuria and Denies urinary urgency Musc Denies back pain, Reports arthralgias (off and on, in the hands/fingers, knees), Denies neck pain and Reports stiffness Skin/Breast Details: (+) on and off diffuse prickly and tingling sensation, often when she feels anxious Reports dry skin (mostly over the sole of the left foot, especially on the lateral aspect) and Denies rash Neuro Denies dizziness and Denies headache(s) Psych Reports anxiety Endo Denies fatigue and Denies palpitations Physical exam (Primary Care) Vital Signs: Last Vital Signs Pulse 79 09/30/24 09:02 BP 126/82 09/30/24 09:02 Pulse Ox 98 09/30/24 09:02 Oxygen Delivery Method Room Air 09/30/24 09:02 BMI result Body Mass Index 23.1 Tobacco/Smoking Status: Tobacco use Status Tobacco use date assessed 09/30/24 09/30/24 09:14 Patient Tobacco Use Status Never used Tobacco 09/30/24 09:14 e-Cigarette/Vaping Use Never Used 09/30/24 09:14 PHQ-9: PHQ-9 Score PHQ-9: Total score 0 09/30/24 09:14 Depression Screening Interpretation: Negative Thrive Assessment: Date of Thrive Assessment Date Thrive assessed 09/30/24 09/30/24 09:14 Currently or been in a relationship where the following occur: No concerns reported Const General: no acute distress and alert HENMT Ears: TM's normal bilaterally and EAC's normal Throat: Yes posterior oropharynx normal and Yes tonsils normal Neck Neck: Yes no lymphadenopathy and Yes supple Thyroid: Thyroid normal Resp Auscultation: clear to auscultation bilaterally, no rales and no wheezes Cardio Rate: regular rate Rhythm: regular rhythm Heart sounds: no murmurs GI Palpation (GI): Soft to palpation and nontender Auscultation: normal bowel sounds General: Yes no CVA tenderness Back/Spine/Pelvis Back: no CVA tenderness Thoracic/Lumbar Spine: No lumbar spinal tenderness Skin Rashes: no rashes Extrem General: Yes no clubbing, cyanosis or edema Right lower extremity: normal to inspection Left lower extremity: normal to inspection Office Procedures Flu Questionnaire Does the patient have a severe egg allergy?: No Does the patient have severe life threatening allergies?: No Does the patient have a fever or illness today?: No Has the patient ever had Guillain-Sidney Syndrome?: No Has the patient ever had any past reaction to a flu shot?: No Immunizations Fluarix Triv 4836-1538 (PF) 45 mcg (15 mcg x 3)/0.5 mL IM syringe Performing Provider: Tyrell Carrillo MD [facility] [facility] [place] [facility] Administered by: CURLY Roberto on 09/30/24 09:18 Dose Route Admin Location Dispensed Lot Number Expiration Date NDC Joinery Patternmaker 0.5 mL IM Left Deltoid 0.5 mL [id number] 05/31/25 [id number] [employer] VIS Given Date VIS Provided VIS Publication Date 09/30/24 Single Vaccine 21 Eligibility Eligibility Date Funding Source Not [facility] Eligible 09/30/24 Private Results Reviewed Results Reviewed: Laboratory Tests 08/04/24 08/04/24 08:51 08:53 WBC 7.1 Hgb 13.7 Hct 41.3 Plt Count 191 Sodium 141 Potassium 4.0 Creatinine 0.64 Estimated GFR > 60 Fasting Glucose 84 Calcium 9.5 AST 17 ALT 14 Triglycerides 72 Cholesterol 162 LDL Cholesterol, Calc 85 HDL Cholesterol 63 TSH 1.81 Ur Specific [place] 1.015 Urine Protein Negative Urine Glucose (UA) Negative Urine Blood Negative Urine Nitrite Negative Ur Leukocyte Esterase Negative Urine Creatinine 71 Laboratory Tests 08/04/24 08:51 N-Telopeptide X-linked 54 Coding Level of Care Code Est Pt Level 4 (98897) Diagnoses Benign essential hypertension I10 Age-related osteoporosis without current pathological fracture M81.0 Osteoporosis type: age-related Presence of current pathological fracture: without current pathological fracture Vitamin D deficiency E55.9 Positive EMA (antinuclear antibody) R76.8 Anxiety F41.9 Additional Codes VIKTORIA-7 Assessment Billing - VIKTORIA-7 Assessment Tool: VIKTORIA-7 Assessment 69897 ([id number]) Assessment & Plan Assessment & Plan (1) Benign essential hypertension: Code(s): I10 - Essential (primary) hypertension Category: Medical Plan: Reinforced low sodium diet - goal is systolic BP of at least 130 mm or less Continue Lisinopril 10 mg QD - Rx refilled Patient is advised to continue monitoring her BP regularly (2) Osteoporosis: Code(s): M81.0 - Age-related osteoporosis without current pathological fracture Category: Medical Qualifiers: Osteoporosis type: age-related Presence of current pathological fracture: without current pathological fracture Qualified Code(s): M81.0 - Age-related osteoporosis without current pathological fracture Plan: She is reminded to continue to stay active and exercise regularly and to continue taking her daily oral Vitamin D and Calcium supplements Repeat BMD last done in October 2022 is again mostly unchanged from previous (BMD from 10/2020) Patient has completed Tx with Alendronate 70 mg once a week x 5 years (Rx stopped after June 2022) Have again discussed with patient other treatment options for osteoporosis, including Forteo, Prolia and Reclast or the other option is to have her see endocrinology for further recommendations but these can wait until her next BMD is done in 2 to 3 years (3) Vitamin D deficiency: Code(s): E55.9 - Vitamin D deficiency, unspecified Category: Medical Plan: Continue OTC Vitamin D3 1000 units QD and Calcium + Vitamin D tablets QD Will recheck her vitamin D level in 6 months (4) Positive EMA (antinuclear antibody): Code(s): R76.8 - Other specified abnormal immunological findings in serum Category: Medical Plan: Patient tested positive for EMA (low level); tests for RA and scleroderma were all negative She currently does not appear to have any signs or symptoms of inflammatory joint disease and has no significant skin rash or lesions and other than her occasional muscle aches and pains - does not appear to have any symptoms of myopathy or myositis She was referred to and seen by rheumatology last year to allay her concerns and she was reassured that she DOES NOT have any evidence of any inflammatory joint disease and does not need any further work ups or rheumatology follow up (5) Anxiety: Code(s): F41.9 - Anxiety disorder, unspecified Category: Medical Plan: We started her previously on Hydroxyzine 25 mg TID PRN and have advised her that she can just take this as needed whenever she feels that her anxiety or related symptoms are starting to get worse but it looks like she has not taken this in a while now States that she has been doing well with her anxiety so far and no longer needs anything for anxiety at this time Plan As requested, flu vaccine given to the patient today Follow up in 6 months Orders: Orders Comprehensive [place]. Panel Fast 6 Months E78.00 - Pure hypercholesterolemia, unspecified Lipid Panel 6 Months E78.00 - Pure hypercholesterolemia, unspecified Vitamin D 25-OH Total 6 Months E55.9 - Vitamin D deficiency, unspecified Influenza [id number] Immunization Today Z23 - Encounter for immunization Medications: Refilled lisinopril 10 mg PO DAILY 90 days 90 tabs 3RF I10 - Essential (primary) hypertension
== END 2024-09-30 09:42 | disposition home or self-care (01) ==
LOC: HO.HMCH 08:53
PROVIDERS: PCP Internal Medicine; Visit Provider Internal Medicine
DX: I10 Essential (primary) hypertension (principal); M81.0 Age-related osteoporosis without current pathological fracture; E55.9 Vitamin D deficiency, unspecified; R76.8 Other specified abnormal immunological findings in serum; F41.9 Anxiety disorder, unspecified; Z23 Encounter for immunization

== ENCOUNTER → 2024-09-30 08:53 | Outpatient (BNVA) | payer MEDICARE, OTHER, SELFPAY | PROVIDERS: PCP Internal Medicine; Visit Provider Internal Medicine | DX: Z23 Encounter for immunization (principal); I10 Essential (primary) hypertension; M81.0 Age-related osteoporosis without current pathological fracture; E55.9 Vitamin D deficiency, unspecified; F41.9 Anxiety disorder, unspecified; R76.8 Other specified abnormal immunological findings in serum | CPT/HCPCS: 90471; 90656; 96127; 99212 ==

== ENCOUNTER 2025-03-31 09:02 | Outpatient (AMB) | payer MEDICARE, OTHER, SELFPAY ==
[2025-03-31 09:05] VITALS: BP 134/80; PULSE 96; O2SAT 98; BMI 23.3
--- NOTE | 2025-03-31 09:05 | A.OFFPC_ITS ---
Vital Signs 03/31/25 09:05 Height 5 ft 2 in Weight 127 lb 8 oz BMI 23.3 BP 134/80 Blood Pressure Location Lt brachial Position Sitting Pulse 96 Pulse Source Pulse Oximeter Pulse Oximetry (%) 98 Oxygen Delivery Method Room Air Intake Visit Reasons: HTN, osteoporosis [facility] [employer] Required: No Accompanied by: Self / Same As Patient Allergies No Known Allergies [No Known Allergies*] Allergy (Verified 03/31/25 09:13) Medication List - Last Reconciled 03/31/25 by Tyrell Carrillo MD calcium carbonate-vitamin D3 600 mg-25 mcg (1,000 unit) 1 cap PO DAILY lisinopril 10 mg PO DAILY 90 days Tobacco use date assessed: 03/31/25 Fall risk assessment: No Falls in past year Last assessed Fall Risk: 03/31/25 Dental Screening Dental Screen Date: 03/31/25 Did you have a dental visit in the last 12 months?: Yes Did you have a dental problem in the last 6 months where you did not have access to dental care?: No Was dental information given to patient?: Patient has dentist HPI HTN, osteoporosis HPI Details Patient comes in today for her follow up visit for her HTN, osteoporosis and anxiety States that she feels okay She denies any headaches or dizziness Denies any chest pains, no SOB No nausea/vomiting, no abdominal pain No change in bowel habits noted Needs her Rx refilled She was not able to get her follow up labs done prior to her appointment today [facility] Medical History Strain of right rotator cuff capsule Vitamin D deficiency Osteoporosis Benign essential hypertension Dysuria Surgical History History of biopsy History of hysteroscopy History of colonoscopy Family History Father Smoker PVD (peripheral vascular disease) Mother Breast cancer Social History Household Members: Significant Other Housing: House Alcohol intake: never Patient Tobacco Use Status: Never used Tobacco e-Cigarette/Vaping Use: Never Used service: No Cognitive needs: No Hearing needs: No Vision needs: No Questionnaire PHQ-9 Over the last 2 weeks, how often have you been bothered by any of the following problems? 1. Little interest or pleasure in doing things: not at all 2. Feeling down, depressed, or hopeless: not at all 3. Trouble falling or staying asleep, or sleeping too much: not at all 4. Feeling tired or having little energy: not at all 5. Poor appetite or overeating: not at all 6. Feeling bad about yourself - or that you are a failure or have let yourself or your family down: not at all 7. Trouble concentrating on things, such as reading the newspaper or watching television: not at all 8. Moving or speaking so slowly that other people could have noticed. Or the opposite - being so fidgety or restless that you have been moving around a lot more than usual: not at all 9. Thoughts that you would be better off or of hurting yourself in some way: not at all Total score: 0 Depression Screening Interpretation: Negative Depression Screening Done: Yes 52096 - PHQ-9 Billing: Yes Source: Developed by Drs. Vijay Delgado, Sandra Franks, Gibson Hairston and colleagues, with an educational kirstie from [employer]. Thrive Questionnaire Date Thrive assessed: 03/31/25 I am a: Patient What is your living situation today?: I have a steady place to live Within the past 12 months, did the food you bought not last and you didn't have the money to get more?: I choose not to answer this question Within the past 12 months, did you worry whether your food would run out before you got money to buy more?: I choose not to answer this question Do you have trouble paying for medicines?: No Do you have trouble getting transportation to medical appointments?: No Do you have trouble paying your heating and electricity bill?: No Do you have trouble taking care of your child, family member or friend?: No Do you have trouble with day-to-day activities such as bathing, preparing meals, shopping, managing finances, etc.?: No Are you currently unemployed and looking for a job?: I choose not to answer this question Are you interested in more education?: No Please select the resources that you would like help with: None Currently or been in a relationship where the following occur: I choose not to answer THRIVE Score: 0 AUDIT C Alcohol Use Questionnaire (AUDIT-C) 1. How often do you have a drink containing alcohol?: Never 3. How often do you have six or more drinks on one occasion?: Never Total Score: 0 Score Reviewed/Action Taken: Yes VIKTORIA-7 AMB Questionnaire VIKTORIA-7 Date VIKTORIA - 7 assessed: 03/31/25 Feeling nervous, anxious, or on edge: 0 = Not at all Not being able to stop or control worryin = Not at all Worrying too much about different things: 0 = Not at all Trouble relaxin = Not at all Being so restless that it is hard to sit still: 0 = Not at all Becoming easily annoyed or irritable: 0 = Not at all Feeling afraid as if something awful might happen: 0 = Not at all Total VIKTORIA-7 score (0-4 normal; 5-9 mild; 10-14 moderate; 15-21 severe): 0 Source: Developed by Drs. Vijay Delgado, Sandra Franks, Gibson Hairston and colleagues, with an educational kirstie from [employer]. Review of Systems Const Denies chills, Denies fatigue, Denies fever(s) and Denies headache(s) ENT Denies dysphagia, Denies dizziness, Denies otalgia, Denies headache(s), Denies n [place] pain, Denies odynophagia and Denies sore throat Card Denies chest pain, Denies palpitations and Denies dyspnea Resp Denies chest congestion, Denies cough and Denies dyspnea GI Denies abdominal pain, Denies constipation, Denies dysphagia, Denies heartburn, Denies diarrhea, Denies nausea, Denies odynophagia and Denies vomiting Denies difficulty voiding, Denies nocturia, Denies dysuria and Denies urinary urgency Musc Denies back pain, Reports arthralgias (off and on, in the hands/fingers, knees), Denies neck pain and Reports stiffness Skin/Breast Details: (+) on and off diffuse prickly and tingling sensation, often when she feels anxious Denies rash Neuro Denies dizziness and Denies headache(s) Psych Reports anxiety Endo Denies fatigue and Denies palpitations Physical exam (Primary Care) Vital Signs: Last Vital Signs Pulse 96 03/31/25 09:05 BP 134/80 03/31/25 09:05 Pulse Ox 98 03/31/25 09:05 Oxygen Delivery Method Room Air 03/31/25 09:05 BMI result Body Mass Index 23.3 Tobacco/Smoking Status: Tobacco use Status Tobacco use date assessed 03/31/25 03/31/25 09:09 Patient Tobacco Use Status Never used Tobacco 03/31/25 09:09 e-Cigarette/Vaping Use Never Used 03/31/25 09:09 PHQ-9: PHQ-9 Score PHQ-9: Total score 0 03/31/25 09:09 Depression Screening Interpretation: Negative Thrive Assessment: Date of Thrive Assessment Date Thrive assessed 03/31/25 03/31/25 09:09 Currently or been in a relationship where the following occur: I choose not to answer Const General: no acute distress and alert HENMT Ears: TM's normal bilaterally and EAC's normal Throat: Yes posterior oropharynx normal and Yes tonsils normal Neck Neck: Yes supple and No lymphadenopathy Thyroid: Thyroid normal Resp Auscultation: clear to auscultation bilaterally, no rales and no wheezes Cardio Rate: regular rate Rhythm: regular rhythm Heart sounds: no murmurs GI Palpation (GI): Soft to palpation and nontender Auscultation: normal bowel sounds General: Yes no CVA tenderness Back/Spine/Pelvis Back: no CVA tenderness Thoracic/Lumbar Spine: No lumbar spinal tenderness Skin Rashes: no rashes Extrem General: Yes no clubbing, cyanosis or edema Right lower extremity: normal to inspection Left lower extremity: normal to inspection Coding Level of Care Code Est Pt Level 4 (03294) Diagnoses Benign essential hypertension I10 Age-related osteoporosis without current pathological fracture M81.0 Osteoporosis type: age-related Presence of current pathological fracture: without current pathological fracture Vitamin D deficiency E55.9 Positive EMA (antinuclear antibody) R76.8 Anxiety F41.9 Additional Codes PHQ-9 - 26263 - PHQ-9 Billing: Yes ([id number]) Assessment & Plan Assessment & Plan (1) Benign essential hypertension: Code(s): I10 - Essential (primary) hypertension Category: Medical Plan: Reinforced low sodium diet - goal is systolic BP of at least 130 mm or less Continue Lisinopril 10 mg QD Patient is reminded to continue monitoring her BP regularly (2) Osteoporosis: Code(s): M81.0 - Age-related osteoporosis without current pathological fracture Category: Medical Qualifiers: Osteoporosis type: age-related Presence of current pathological fracture: without current pathological fracture Qualified Code(s): M81.0 - Age- related osteoporosis without current pathological fracture Plan: Patient is again reminded to continue to stay active and exercise regularly and to continue taking her daily oral Vitamin D and Calcium supplements Repeat BMD last done in October 2022 is again mostly unchanged from previous (BMD from 10/2020) Patient has completed Tx with Alendronate 70 mg once a week x 5 years (Rx stopped after June 2022) Have again discussed with patient other treatment options for osteoporosis, including Forteo, Prolia and Reclast or the other option is to have her see endocrinology for further recommendations but these can wait until her next BMD is done later this year (3) Vitamin D deficiency: Code(s): E55.9 - Vitamin D deficiency, unspecified Category: Medical Plan: Continue OTC Vitamin D3 1000 units QD and Calcium + Vitamin D tablets QD Will recheck her vitamin D level in 6 months (4) Positive EMA (antinuclear antibody): Code(s): R76.8 - Other specified abnormal immunological findings in serum Category: Medical Plan: Patient tested positive for EMA (low level); tests for RA and scleroderma were all negative She currently does not appear to have any signs or symptoms of inflammatory joint disease and has no significant skin rash or lesions and other than her occasional muscle aches and pains - does not appear to have any symptoms of m yopathy or myositis She was referred to and seen by rheumatology last year to allay her concerns and she was reassured that she DOES NOT have any evidence of any inflammatory joint disease and does not need any further work ups or rheumatology follow up Will have her recheck some of these again in 6 months for follow up (5) Anxiety: Code(s): F41.9 - Anxiety disorder, unspecified Category: Medical Plan: We started her previously on Hydroxyzine 25 mg TID PRN and have advised her that she can just take this as needed whenever she feels that her anxiety or related symptoms are starting to get worse but it looks like she has not taken this in a while now States that she has been doing well with her anxiety so far and no longer needs anything for anxiety at this time Plan Follow up in 6 months Orders: Orders Lipid Panel 6 Months E78.00 - Pure hypercholesterolemia, unspecified UA CC w/rflx Micro + Cult 6 Months R30.0 - Dysuria C Reactive Protein 6 Months R76.8 - Other specified abnormal immunological findings in serum Complete Blood Count Auto Diff 6 Months D64.9 - Anemia, unspecified Comprehensive [place]. Panel Fast 6 Months E78.00 - Pure hypercholesterolemia, unspecified TSH reflex Free T4 6 Months E78.00 - Pure hypercholesterolemia, unspecified Vitamin D 25-OH Total 6 Months E55.9 - Vitamin D deficiency, unspecified Vitamin B12 and Folate 6 Months E53.8 - Deficiency of other specified B group vitamins Anti DNA DS Antibody 6 Months R76.8 - Other specified abnormal immunological findings in serum Rheumatoid Factor 6 Months R76.8 - Other specified abnormal immunological findings in serum Cyclic Citrullinated Peptide 6 Months M25.50 - Pain in unspecified joint, R76.8 - Other specified abnormal immunological findings in serum Erythrocyte Sedimentation Rate 6 Months M79.7 - Fibromyalgia, R76.8 - Other specified abnormal immunological findings in serum Medications: Changed From calcium carbonate-vitamin D3 600 mg-25 mcg (1,000 unit) 1 cap PO DAILY To calcium carbonate-vitamin D3 600 mg-25 mcg (1,000 unit) 1 cap PO DAILY 90 days 90 caps 0RF Refilled lisinopril 10 mg PO DAILY 90 days 90 tabs 3RF I10 - Essential (primary) hypertension
== END 2025-03-31 09:31 | disposition home or self-care (01) ==
LOC: HO.HMCH 09:03
PROVIDERS: PCP Internal Medicine; Visit Provider Internal Medicine
DX: I10 Essential (primary) hypertension (principal); M81.0 Age-related osteoporosis without current pathological fracture; E55.9 Vitamin D deficiency, unspecified; R76.8 Other specified abnormal immunological findings in serum; F41.9 Anxiety disorder, unspecified

== ENCOUNTER → 2025-03-31 09:02 | Outpatient (BNVA) | payer MEDICARE, OTHER, SELFPAY | PROVIDERS: PCP Internal Medicine; Visit Provider Internal Medicine | DX: I10 Essential (primary) hypertension (principal); M81.0 Age-related osteoporosis without current pathological fracture; E55.9 Vitamin D deficiency, unspecified; F41.9 Anxiety disorder, unspecified; R76.8 Other specified abnormal immunological findings in serum | CPT/HCPCS: 96127; 99212 ==

== ENCOUNTER 2025-04-07 10:00 | Outpatient (REF) | payer MEDICARE, OTHER, SELFPAY | END 2025-04-07 10:01 | disposition home or self-care (01) | LOC: HO.MAMMO 10:00 | PROVIDERS: PCP Internal Medicine; Visit Provider Internal Medicine | DX: Z12.31 Encounter for screening mammogram for malignant neoplasm of breast (principal) | CPT/HCPCS: 77063; 77067 ==

== ENCOUNTER → 2025-04-07 10:45 | Outpatient (BNV) | payer MEDICARE, OTHER, SELFPAY | PROVIDERS: PCP Internal Medicine; Visit Provider Internal Medicine | DX: Z12.31 Encounter for screening mammogram for malignant neoplasm of breast (principal) | CPT/HCPCS: 77063; 77067 ==

== ENCOUNTER 2025-10-06 08:47 | Outpatient (REF) | payer MEDICARE, OTHER, SELFPAY ==
[2025-10-06 09:49] LABS: MANUAL DIFF FLAG NO
[2025-10-06 10:57] LABS: Hematocrit 43.3 % (37.0-47.0); Hemoglobin 14.0 g/dl (12.0-16.0); Imm Gran Abs Auto 0.02 X10*3/uL (0.00-0.03); Imm Gran Pct Auto 0.3 % (0.0-0.4); Lymphocytes Absolute Auto 1.4 X10*3/uL (1.2-4.9); Mean Corpuscular HGB Conc 32.3 g/dl (31.0-35.0); Mean Corpuscular Hemoglobin 29.8 pg (27.0-33.0); Mean Corpuscular Volume 92.1 fL (80.0-98.0); NRBC Abs Auto 0.000 X10*3/uL (0.0-0.012); NRBC Pct Auto 0.0 /100WBC (0.0-0.2); Platelet Count 190 X10*3/uL (160-400); Red Blood Count 4.70 X10*6/uL (4.20-5.50); White Blood Count 6.6 X10*3/uL (4.8-10.8)
[2025-10-06 11:15] LABS: Appearance Urine Clear; Glucose Urine UA Negative (Negative); PH 6.0 (5.0-9.0); Specific Gravity - Urine 1.015 (1.005-1.025)
[2025-10-06 11:32] LABS: Erythrocyte Sedimentation Rate 9 MM/HR (0-20)
[2025-10-06 11:33] LABS: Alanine Aminotransferase 18 U/L (0-31); Albumin Level 4.5 g/dL (3.5-5.0); Alkaline Phosphatase 89 U/L (39-117); Anion Gap 9 (12-20); Aspartate Amino Transferase 24 U/L (5-31); Blood Urea Nitrogen 14 mg/dL (9-16); Calcium 9.3 mg/dL (8.4-10.2); Carbon Dioxide 29 mmol/L (22-29); Chloride 108 mmol/L (96-108); Cholesterol 191 mg/dL (<200); Estimated Glomerular Filt Rate > 60; HDL Cholesterol 65 mg/dL (>40); Potassium 4.2 mmol/L (3.3-5.1); Sodium 142 mmol/L (135-145); Total Protein 7.5 g/dL (6.5-8.0); Triglycerides 96 mg/dL (<150)
[2025-10-06 11:58] LABS: Folate 11.8 ng/mL (> or = 4.0); Vitamin B12 329 pg/mL (200-900)
== END 2025-10-06 08:48 | disposition home or self-care (01) ==
LOC: HO.LAB 08:47
PROVIDERS: PCP Internal Medicine; Visit Provider Internal Medicine
DX: I10 Essential (primary) hypertension (principal); M79.7 Fibromyalgia; E53.8 Deficiency of other specified B group vitamins; M25.50 Pain in unspecified joint; E55.9 Vitamin D deficiency, unspecified; E78.00 Pure hypercholesterolemia, unspecified; D64.9 Anemia, unspecified; R76.89 Other specified abnormal immunological findings in serum; R30.0 Dysuria; M81.0 Age-related osteoporosis without current pathological fracture; Z78.0 Asymptomatic menopausal state; F41.9 Anxiety disorder, unspecified; Z13.31 Encounter for screening for depression; Z13.39 Encounter for screening examination for other mental health and behavioral disorders
CPT/HCPCS: 36415; 80053; 80061; 81003; 82306; 82607; 82746; 84443; 85025; 85652; 86140; 86200; 86225; 86431; 96127; 99212

== ENCOUNTER 2025-10-06 08:47 | Outpatient (AMB) | payer MEDICARE, OTHER, SELFPAY ==
[2025-10-06 08:50] VITALS: BP 126/86; PULSE 93; O2SAT 97; BMI 23.3
--- NOTE | 2025-10-06 08:50 | MHC.PC.OV ---
Vital Signs 10/06/25 08:50 Height 5 ft 2 in Weight 127 lb 4 oz BMI 23.3 BP 126/86 Blood Pressure Location Lt brachial Position Sitting Pulse 93 Pulse Source Pulse Oximeter Pulse Oximetry (%) 97 Oxygen Delivery Method Room Air Intake Visit Reasons: HTN, osteoporosis [place] Required: No Accompanied by: Self / Same As Patient Allergies No Known Allergies (No Known Allergies*) Allergy (Verified 10/06/25 09:13) Medication List - Last Reconciled 10/06/25 by Tyrell Carrillo MD calcium carbonate-vitamin D3 600 mg-25 mcg (1,000 unit) 1 cap PO DAILY 90 days lisinopril 10 mg PO DAILY 90 days Tobacco use date assessed: 10/06/25 Fall risk assessment: No Falls in past year Last assessed Fall Risk: 10/06/25 Dental Screening Dental Screen Date: 10/06/25 Did you have a dental visit in the last 12 months?: Yes Did you have a dental problem in the last 6 months where you did not have access to dental care?: No Was dental information given to patient?: Patient has dentist HPI HTN, osteoporosis HPI Details Patient comes in today for her follow up visit for her HTN, osteoporosis and anxiety States that she feels okay She denies any headaches or dizziness Denies any chest pains, no SOB No nausea/vomiting, no abdominal pain No change in bowel habits noted Needs her Lisinopril Rx refilled She was again not able to get her follow up labs done prior to coming in for her appointment today - states that she can go and get them done [facility] as soon as she leaves the office today [facility] Medical History Strain of right rotator cuff capsule Vitamin D deficiency Osteoporosis Benign essential hypertension Dysuria Surgical History History of biopsy History of hysteroscopy History of colonoscopy Family History Father Smoker PVD (peripheral vascular disease) Mother Breast cancer Social History Household Members: Significant Other Housing: House Alcohol intake: never Patient Tobacco Use Status: Never used Tobacco e-Cigarette/Vaping Use: Never Used service: No Cognitive needs: No Hearing needs: No Vision needs: No Questionnaire PHQ-9 Over the last 2 weeks, how often have you been bothered by any of the following problems? 1. Little interest or pleasure in doing things: not at all 2. Feeling down, depressed, or hopeless: not at all 3. Trouble falling or staying asleep, or sleeping too much: not at all 4. Feeling tired or having little energy: not at all 5. Poor appetite or overeating: not at all 6. Feeling bad about yourself - or that you are a failure or have let yourself or your family down: not at all 7. Trouble concentrating on things, such as reading the newspaper or watching television: not at all 8. Moving or speaking so slowly that other people could have noticed. Or the opposite - being so fidgety or restless that you have been moving around a lot more than usual: not at all 9. Thoughts that you would be better off or of hurting yourself in some way: not at all Total score: 0 Depression Screening Interpretation: Negative Depression Screening Done: Yes 93509 - PHQ-9 Billing: Yes Source: Developed by Drs. Vijay Delgado, Sandra Franks, Gibson Hairston and colleagues, with an educational kirstie from [employer]. Thrive Questionnaire Date Thrive assessed: 10/06/25 I am a: Patient What is your living situation today?: I have a steady place to live Within the past 12 months, did the food you bought not last and you didn't have the money to get more?: I choose not to answer this question Within the past 12 months, did you worry whether your food would run out before you got money to buy more?: I choose not to answer this question Do you have trouble paying for medicines?: No Do you have trouble getting transportation to medical appointments?: No Do you have trouble paying your heating and electricity bill?: No Do you have trouble taking care of your child, family member or friend?: No Do you have trouble with day-to-day activities such as bathing, preparing meals, shopping, managing finances, etc.?: No Are you currently unemployed and looking for a job?: I choose not to answer this question Are you interested in more education?: No Please select the resources that you would like help with: None Currently or been in a relationship where the following occur: I choose not to answer THRIVE Score: 0 AUDIT C Alcohol Use Questionnaire (AUDIT-C) 1. How often do you have a drink containing alcohol?: Never 3. How often do you have six or more drinks on one occasion?: Never Total Score: 0 Score Reviewed/Action Taken: Yes VIKTORIA-7 AMB Questionnaire VIKTORIA-7 Date VIKTORIA - 7 assessed: 10/06/25 Feeling nervous, anxious, or on edge: 0 = Not at all Not being able to stop or control worryin = Not at all Worrying too much about different things: 0 = Not at all Trouble relaxin = Not at all Being so restless that it is hard to sit still: 0 = Not at all Becoming easily annoyed or irritable: 0 = Not at all Feeling afraid as if something awful might happen: 0 = Not at all Total VIKTORIA-7 score (0-4 normal; 5-9 mild; 10-14 moderate; 15-21 severe): 0 Source: Developed by Drs. Vijay Delgado, Sandra Franks, Gibson Hairston and colleagues, with an educational kirstie from [employer]. Review of Systems Const Denies chills, Denies fatigue, Denies fever(s) and Denies headache(s) ENT Denies dysphagia, Denies dizziness, Denies otalgia, Denies headache(s), Denies neck pain, Denies odynophagia and Denies sore throat Card Denies chest pain, Denies palpitations and Denies dyspnea Resp Denies chest congestion, Denies cough and Denies dyspnea GI Denies abdominal pain, Denies constipation, Denies dysphagia, Denies heartburn, Denies diarrhea, Denies nausea, Denies odynophagia and Denies vomiting Denies difficulty voiding, Denies nocturia, Denies dysuria and Denies urinary urgency Musc Denies back pain, Reports arthralgias (off and on, in the hands/fingers, knees), Denies neck pain and Reports stiffness Skin/Breast Denies rash Neuro Denies dizziness and Denies headache(s) Psych Reports anxiety Endo Denies fatigue and Denies palpitations Physical exam (Primary Care) Vital Signs: Last Vital Signs Pulse 93 10/06/25 08:50 BP 126/86 10/06/25 08:50 Pulse Ox 97 10/06/25 08:50 Oxygen Delivery Method Room Air 10/06/25 08:50 BMI result Body Mass Index 23.3 Tobacco/Smoking Status: Tobacco use Status Tobacco use date assessed 10/06/25 10/06/25 08:56 Patient Tobacco Use Status Never used Tobacco 10/06/25 08:56 e-Cigarette/Vaping Use Never Used 10/06/25 08:56 PHQ-9: PHQ-9 Score PHQ-9: Total score 0 10/06/25 08:56 Depression Screening Interpretation: Negative Thrive Assessment: Date of Thrive Assessment Date Thrive assessed 10/06/25 10/06/25 08:56 Currently or been in a relationship where the following occur: I choose not to answer Const General: no acute distress and alert HENMT Ears: TM's normal bilaterally and EAC's normal Throat: Yes posterior oropharynx normal and Yes tonsils normal Neck Neck: Yes supple and No lymphadenopathy Thyroid: Thyroid normal Resp Auscultation: clear to auscultation bilaterally, no rales and no wheezes Cardio Rate: regular rate Rhythm: regular rhythm Heart sounds: no murmurs GI Palpation (GI): Soft to palpation and nontender Auscultation: normal bowel sounds General: Yes no CVA tenderness Back/Spine/Pelvis Back: no CVA tenderness Thoracic/Lumbar Spine: No lumbar spinal tenderness Skin Rashes: no rashes Extrem General: Yes no clubbing, cyanosis or edema Coding Level of Care Code Est Pt Level 4 (18512) Diagnoses Benign essential hypertension I10 Age-related osteoporosis without current pathological fracture M81.0 Osteoporosis type: age-related Presence of current pathological fracture: without current pathological fracture Vitamin D deficiency E55.9 Positive EMA (antinuclear antibody) R76.8 Anxiety F41.9 Additional Codes PHQ-9 - 98171 - PHQ-9 Billing: Yes ([id number]) Assessment & Plan Assessment & Plan (1) Benign essential hypertension: Code(s): I10 - Essential (primary) hypertension Category: Medical Plan: Reinforced low sodium diet - goal is systolic BP of at least 130 mm or less Continue Lisinopril 10 mg QD Patient is reminded to continue monitoring her BP regularly She is advised to go and get her follow up labs done [facility] (2) Osteoporosis: Code(s): M81.0 - Age-related osteoporosis without current pathological fracture Category: Medical Qualifiers: Osteoporosis type: age-related Presence of current pathological fracture: without current pathological fracture Qualified Code(s): M81.0 - Age-related osteoporosis without current pathological fracture Plan: Patient is also reminded again to continue to stay active and exercise regularly and to continue taking her daily oral Vitamin D and Calcium supplements - have advised her to increase her Vitamin D to 2000 units daily and to take Calcium tablets of at least 1000 to 1200 mg QD Repeat BMD last done back in October 2022 was mostly unchanged from her previous BMD done in 10/2020 Patient completed Tx with Alendronate 70 mg once a week x 5 years (Rx stopped after June 2022) Will now have patient get her repeat BMD for follow up - ordered Have previously discussed with patient other treatment options for osteoporosis, including Forteo, Prolia and Reclast or the other option is to have her see endocrinology for further recommendations but these can wait until her repeat BMD is done (3) Vitamin D deficiency: Code(s): E55.9 - Vitamin D deficiency, unspecified Category: Medical Plan: Continue OTC Vitamin D3 but to increase her dose to 2000 units QD (4) Positive EMA (antinuclear antibody): Code(s): R76.8 - Other specified abnormal immunological findings in serum Category: Medical Plan: Patient tested positive for EMA (low level); tests for RA and scleroderma were all negative She currently does not appear to have any signs or symptoms of inflammatory joint disease and has no significant skin rash or lesions and other than her occasional muscle aches and pains - does not appear to have any symptoms of myopathy or myositis She was referred to and seen by rheumatology last year to allay her concerns and she was reassured that she DOES NOT have any evidence of any inflammatory joint disease and does not need any further work ups or rheumatology follow up (5) Anxiety: Code(s): F41.9 - Anxiety disorder, unspecified Category: Medical Plan: We started her previously on Hydroxyzine 25 mg TID PRN and have advised her that she can just take this as needed whenever she feels that her anxiety or related symptoms are starting to get worse but it looks like she has not taken this in a while now Patient feels that she has been doing well with her anxiety so far and no longer needs anything for anxiety at this time but she did mention that she has trouble sleeping at times and would like to know what OTC meds she can try for this Have advised patient that she can try taking some OTC Melatonin PRN to start with Plan Follow up in 6 months Orders: Orders XR DEXA axial skeleton Today M81.0 - Age-related osteoporosis without current pathological fracture, Z78.0 - Asymptomatic menopausal state Medications: Refilled lisinopril 10 mg PO DAILY 90 tabs 3RF 90 days I10 - Essential (primary) hypertension
--- OUTSIDE RECORDS SUMMARY | 2025-10-06 09:15 | XMS_ITS | Patient Health Record ---
[facility] Address [address] [place] [address] Care Team Providers Care Sheet Turner Name Role Phone Gerardo LIRA, Tyrell Primary Care Provider Amauri Aguirre Jr Unavailable Reason For Referral No Information Medications Medication SIG (Take, Route, Frequency, Duration) Notes Start Date End Date Status Lisinopril 10 MG 1 tablet Orally Once a day Active Marylou Allergy Acti ve Colyte with Flavor Packs 240 GM As directed Orally Over the specified time.; Duration: 1 day(s) 09/05/2016 Active Problems Problem Type SNOMED Code ICD Code Onset Dates Problem Status W/U Status Risk Notes Problem Colon cancer screening (641659209) Colon cancer screening (Z12.11) Active confirmed Plan Of Treatment Future Test Test Name Order Date COLONOSCOPY 09/05/2016 Insurance Providers Payer Name Payer Address Payer Phone Subscriber Number Group Number Insured Name Patient Relationship to Insured Coverage Start Date Coverage End Date [employer] [address] [place] [address] [phone] [id number] SAMUEL GOINS Self - patient is the insured Medical (General) History Medical History History ICD Code colonoscopy 05-15-2006 hypertension environmental allergies Surgical History Surgery Date(Month/Year) benign breast biopsies uterine polyps
== END 2025-10-06 09:32 | disposition home or self-care (01) ==
LOC: HO.HMCH 08:48
PROVIDERS: PCP Internal Medicine; Visit Provider Internal Medicine
DX: I10 Essential (primary) hypertension (principal); M81.0 Age-related osteoporosis without current pathological fracture; E55.9 Vitamin D deficiency, unspecified; R76.89 Other specified abnormal immunological findings in serum; F41.9 Anxiety disorder, unspecified

== ENCOUNTER 2025-11-22 13:44 | Outpatient (REF) | payer MEDICARE, OTHER, SELFPAY ==
--- NOTE | ~2025-11-22 | MM_ITS ---
EXAMINATION: DXA BONE DENSITY AXIAL HISTORY: Z78.0 - Asymptomatic menopausal state TECHNIQUE: [employer] Dual energy absorptiometry (DEXA) of the lumbar spine, total left hip, and femoral neck was performed. COMPARISON: Comparison is made with the prior examination dated 10/09/2022. FINDINGS: The bone mineral density of the lumbar spine is 0.888 g/cm2, corresponding to a T-score of -2.4, and a Z-score of -0.5. This is indicative of osteopenia. This represents a BMD change of 1.3% compared to the prior exam. This is not statistically significant. The bone mineral density of the left total hip is 0.707 g/cm2, corresponding to a T-score of -2.4, and a Z-score of -0.7. This is indicative of osteopenia. This represents a BMD change of 2.2% compared to the prior exam. This is not statistically significant. The bone mineral density of the left femoral neck is 0.653 g/cm2, corresponding to a T-score of -2.8, and a Z-score of -0.9. This is indicative of osteoporosis. This represents a BMD change of 5.2% compared to the prior exam. MM/XR DEXA axial skeleton IMPRESSION: Based on bone mineral density, and according to World Health Organization (WHO) criteria, the diagnosis is consistent with osteoporosis. Statistically, 68% of repeat scans fall within 1 SD (+/- 0.010 g/cm2 for AP spine L1-L4) and 1 SD (+/- 0.012 g/cm2 for femur total) FRAX is a trademark of the [employer], a World Health Organization (WHO) Collaborating Center. Electronically signed by: Vijay Tubbs MD 11/22/2025 02:57 PM EST
--- OUTSIDE RECORDS SUMMARY | 2025-11-22 17:11 | XMS_ITS | Patient Health Record ---
Author Organization [facility] Address [address] [place] [address] Care Team Providers Care Payment Specialist Name Role Phone Gerardo LIRA, Tyrell Primary Care Provider Amauri Aguirre Jr Unavailable [phone] Reason For Referral No Information Medications Medication SIG (Take, Route, Frequency, Duration) Notes Start Date End Date Status Lisinopril 10 MG Tablet 1 tablet Orally Once a day Active Marylou Allergy Acti ve Colyte with Flavor Packs 240 GM Solution Reconstituted As directed Orally Over the specified time.; Duration: 1 day(s) 09/05/2016 Active Social History Social History Additional Details Category Social Info Options Details Miscellaneous: Marital status: 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 Problems Problem Type SNOMED Code ICD Code Onset Dates Problem Status W/U Status Risk Notes Problem Colon cancer screening (850266590) Colon cancer screening (Z12.11) Active confirmed Plan Of Treatment Future Test Test Name Order Date COLONOSCOPY 09/05/2016 Insurance Providers Payer Name Payer Address Payer Phone Subscriber Number Group Number Insured Name Patient Relationship to Insured Coverage Start Date Coverage End Date [employer] [address] [place] [address] [id number] SAMUEL GOINS Self - patient is the insured Medical (General) History Medical History History ICD Code colonoscopy 05-15-2006 hypertension environmental allergies Surgical History Surgery Date(Month/Year) benign breast biopsies uterine polyps
== END 2025-11-22 13:45 | disposition home or self-care (01) ==
LOC: HO.MAMMO 13:44
PROVIDERS: PCP Internal Medicine; Visit Provider Internal Medicine
DX: Z78.0 Asymptomatic menopausal state (principal); M81.0 Age-related osteoporosis without current pathological fracture
CPT/HCPCS: 77080

== ENCOUNTER → 2025-11-22 14:30 | Outpatient (BNV) | payer MEDICARE, OTHER, SELFPAY | PROVIDERS: PCP Internal Medicine; Visit Provider Radiology Diagnostic Radiology | DX: E28.39 Other primary ovarian failure (principal) | CPT/HCPCS: 77080 ==